=== PATIENT | male | born 1975 | race American Indian/Alaskan Native ===

== ENCOUNTER 2016-11-23 16:22 | Emergency (ER) | payer MEDICARE, OTHER ==
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
[2016-11-23] MEDS ORDERED: BOOSTRIX IM ONE (20:19)
[2016-11-23] MEDS ORDERED: PERCOCET 5/325 PO ONE (20:19)
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
[2016-11-23 22:37] VITALS: BP 116/76
== END 2016-11-23 22:00 | disposition home or self-care (01) ==
LOC: ED 16:22
DX: S01.312A Laceration without foreign body of left ear, initial encounter (principal); H53.8 Other visual disturbances; R51 Headache; Y04.2XXA Assault by strike against or bumped into by another person, initial encounter; Y93.89 Activity, other specified; Y99.9 Unspecified external cause status; Y92.89 Other specified places as the place of occurrence of the external cause; J45.909 Unspecified asthma, uncomplicated
CPT/HCPCS: 70450; 90471; 90715

== ENCOUNTER 2019-01-20 12:49 | Emergency (ER) | payer MEDICARE ==
--- NOTE | 2019-01-20 13:09 | Emergency Department Report ---
Blank Doc - Documentation Documentation: This is a 43-year-old male that presents with acute on chronic lower back pain. Denies any new injuries. HX of bulging lumbar spine. This initial assessment/diagnostic orders/clinical plan/treatment(s) is/are subject to change based on patient's health status, clinical progression and re- assessment by fellow clinical providers in the ED. Further treatment and workup at subsequent clinical providers discretion. Patient/guardians urged not to elope from the ED as their condition may be serious if not clinically assessed and managed. Initial orders include: 1- Patient sent to [facility] for further evaluation and treatment
[2019-01-20] MEDS ORDERED: TORADOL IM ONE (13:11)
[2019-01-20] MEDS ORDERED: DELTASONE PO ONE (13:11)
[2019-01-20 13:20] VITALS: BP 134/95
--- NOTE | 2019-01-20 14:31 | Emergency Department Report ---
ED Back Pain/Injury HPI - General Chief Complaint: Back Pain/Injury Stated Complaint: SHARP BACK PAIN/(L) SIDE Time Seen by Provider: 01/20/19 13:09 Source: patient Mode of arrival: Ambulatory Limitations: No Limitations - History of Present Illness Initial Comments: This is a 43-year-old -[place] female presents to the emergency room with low back pain that is radiating down left lower extremity. Patient reports a history of asthma and 3 bulging disks in the lower back. Patient states he is a retired [employer] and [facility]. Reports pain increased this morning. Patient states he just started [facility]. He denies numbness or tingling, swelling, bruising, nausea or vomiting, dysuria, urinary frequency or urgency. MD Complaint: back pain Similar Symptoms Previously: Yes Place: home Radiation: left leg Severity: severe Severity scale (0 -10): 10 Quality: burning, sharp Consistency: constant Improves With: none Worsens With: movement, supine, sitting upright Context: unknown Associated Symptoms: denies: numbness, difficulty urinating, incontinence, fever/chills Treatments Prior to Arrival: NSAIDS - Related Data Previous Rx's Medication Instructions Recorded Last Taken Type HYDROcodone/APAP 5-325 [[place] 1 each PO Q6HR PRN #14 tablet 11/23/16 Unknown Rx 5/325] Sulfamethoxazole/Trimethoprim 1 each PO BID #10 tablet 11/23/16 Unknown Rx [Bactrim DS TAB] Naproxen [Naprosyn] 500 mg PO TID PRN #20 tablet 01/20/19 Unknown Rx methOCARBAMOL [Robaxin TAB] 750 mg PO Q8H PRN #20 tablet 01/20/19 Unknown Rx traMADol [Ultram 50 MG tab] 50 mg PO Q6HR PRN #12 tablet 01/20/19 Unknown Rx Allergies Allergy/AdvReac Type Severity Reaction Status Date / Time No Known Allergies Allergy Verified 01/20/19 12:51 ED Review of Systems ROS: Stated complaint: SHARP BACK PAIN/(L) SIDE Other details as noted in HPI Constitutional: denies: chills, fever Respiratory: denies: cough, shortness of breath, wheezing Cardiovascular: denies: chest pain, palpitations Gastrointestinal: denies: abdominal pain, nausea, diarrhea Musculoskeletal: back pain. denies: joint swelling, arthralgia Skin: denies: rash, lesions Neurological: denies: headache, weakness, paresthesias Psychiatric: denies: anxiety, depression ED Back Pain Physical Exam - Exam General: Vital signs noted. No distress. Alert and acting appropriately. Back/Abdomen: Yes Sacroiliac Tenderness, Yes Straight Leg Raise Pain (left lower extremity), No Abdominal Tenderness, No Perithoracic Tenderness, No Perilumbar Tenderness, No Flank Tenderness Neuro: Yes Normal Sensation, Yes Normal DTR's, Yes Normal Gait, No Motor Weakness ED Course Vital Signs 01/20/19 13:07 Temperature 97.9 F Pulse Rate 99 H Respiratory 20 Rate Blood Pressure 134/95 O2 Sat by Pulse 98 Oximetry ED Medical Decision Making - Medical Decision Making Patient was examined by me. Vitals are normal and patient is in no acute distress. Patient is followed by [facility]. He was started on physical therapy this week for bulging disks to lower back. Findings of acute on chronic low back pain with sciatica. Patient given prednisone, Toradol IM, and Percocet while in the ER. Patient informed of results. Start Toradol, Robaxin, and nap roxen for pain. Plan discussed with patient to discharge home and treat outpatient. He agrees with ER plan. Patient discharged home in stable condition. Follow up with PCP in 2-3 days. Critical care attestation.: If time is entered above; I have spent that time in minutes in the direct care of this critically ill patient, excluding procedure time. ED Disposition Clinical Impression: Acute exacerbation of chronic low back pain Chronic low back pain with left-sided sciatica Qualifiers: Back pain laterality: bilateral Qualified Code(s): M54.42 - Lumbago with sciatica, left side Disposition: TO HOME OR SELFCARE Is pt being admited?: No Does the pt Need Aspirin: No Condition: Stable Instructions: Lumbar Radiculopathy (ED), Chronic Back Pain (ED) Additional Instructions: Rest Use ice or heat on affected area for 20 minutes and off for 2 hours. Take pain medication as needed for pain. Don't drive or operate heavy machinery while taking muscle relaxers because they may cause drowsiness. Follow up with Primary Care Provider in 2-3 days. Prescriptions: Naproxen [Naprosyn] 500 mg PO TID PRN #20 tablet PRN Reason: Pain, Moderate (4-6) methOCARBAMOL [Robaxin TAB] 750 mg PO Q8H PRN #20 tablet PRN Reason: Muscle Spasm traMADol [Ultram 50 MG tab] 50 mg PO Q6HR PRN #12 tablet PRN Reason: Pain , Severe (7-10) Referrals: KANWAL WISE MD [Primary Care Provider] - 3-5 Days [facility] [Outside] - 3-5 Days KIERAN QUIÑONEZ MD [Staff Physician] - 3-5 Days Time of Disposition: 15:06
[2019-01-20] MEDS ORDERED: NORCO 5/325 PO ONE (14:52)
== END 2019-01-20 15:33 | disposition home or self-care (01) ==
LOC: ED 12:49
DX: M54.42 Lumbago with sciatica, left side (principal); G89.29 Other chronic pain; Z79.899 Other long term (current) drug therapy
CPT/HCPCS: 96372; 99282; J1885; J7512